=== PATIENT | female | born 1980 | race Caucasian/White ===

== ENCOUNTER → 2018-02-04 | Outpatient (CLI) | payer BC ==
[~2018-02-04] MED LIST: ALBU90OI INH; CYCL10 PO; HYDACE5325 PO; IBUP400 PO
== END ==
LOC: LAB 17:41
PROVIDERS: Registered Nurse Community Health
DX: Z11.3 Encounter for screening for infections with a predominantly sexual mode of transmission (principal)
CPT/HCPCS: 87070; 87205; 87491; 87591

== ENCOUNTER → 2018-02-19 | Outpatient (CLI) | payer BC ==
[2018-02-22 13:21] LABS: HPV Genotype 16 Not Detected (NOTDET); HPV Genotype 18 Not Detected (NOTDET)
[2018-02-28 14:42] LABS: HPV High Risk Other Not Detected (NOTDET)
== END ==
LOC: LAB SHORT 11:40 → LAB 11:40
PROVIDERS: Registered Nurse Community Health
DX: Z12.4 Encounter for screening for malignant neoplasm of cervix (principal)
CPT/HCPCS: 87624; G0123